=== PATIENT | male | born 1965 | race Hispanic/Latino ===

== ENCOUNTER 2023-02-22 10:36 | Emergency (ER) | payer BC, OTHER ==
[2023-02-22] MEDS ORDERED: Ondansetron PF 4 MG/2 ML Vial ONE (11:11)
[2023-02-22 11:16] LABS: #Basophils 0.1 thou/uL (0.0-0.2); #Lymphocytes 1.7 thou/uL (1.20-3.40); #Monocytes 0.8 thou/uL (0.11-0.59); #Neutrophils 12.3 thou/uL (1.40-6.50); %Basophils 0.8 % (0.0-1.0); %Eosinophils 0.2 % (0.0-10.0); %Lymphocytes 11.5 % (21.0-51.0); %Monocytes 5.2 % (0.0-10.0); %Neutrophils 82.5 % (42.0-75.0); Hemoglobin 8.2 g/dL (14.0-18.0); Mean Corpuscular HGB CONC 33.1 g/dL (32.0-36.0); Mean Corpuscular Hemoglobin 27.3 pg (27.0-31.0); Mean Corpuscular Volume 82.3 fl (78.0-98.0); Mean Platelet Volume 8.5 fL (7.4-10.4); Platelet Count 402 10x3/uL (130-400); RBC Distribution Width 15.6 % (11.5-14.5); Red Blood Cell (RBC) Count 3.01 mill/uL (4.70-6.10)
[2023-02-22 11:26] LABS: INR-International Normal Ratio 1.5; Prothrombin Time 18.7 sec (12.0-14.7)
[2023-02-22 11:27] LABS: PTT 28.9 sec (22.9-36.1)
[2023-02-22 11:48] LABS: ALT (SGPT) 273 U/L (8-55); AST (SGOT) 167 U/L (5-34); Albumin 3.9 g/dL (3.5-5.0); Alkaline Phosphatase 301 U/L (40-110); Anion Gap 26 mmol/L (10-20); BUN (Urea Nitrogen) 92 mg/dL (8.4-25.7); Bilirubin, Total 11.7 mg/dL (0.2-1.2); Calc. Creatinine Clearance 0 mL/min (70-130); Calcium 8.8 mg/dL (7.8-10.44); Carbon Dioxide 26 mmol/L (22-29); Chloride 82 mmol/L (98-107); Estimated GFR 26; Globulin 3.8 g/dL (2.4-3.5); Glucose 281 mg/dL (70-105); Lipase 454 U/L (8-78); Potassium 2.7 mmol/L (3.5-5.1); Protein, Total 7.7 g/dL (6.0-8.3); Sodium 131 mmol/L (136-145)
[2023-02-22] MEDS ORDERED: Morphine 4 MG/ML VIAL ONE (13:28)
[2023-02-22] MEDS ORDERED: NS 0.9% w/ 20 MEQ KCL 0 ML ONE (13:28)
[2023-02-22] MEDS ORDERED: Potassium Chloride 20 MEQ/100 ML PREMIX BAG ONE (13:33)
[2023-02-22] MEDS ORDERED: hydrALAZINE 20 MG/ML VIAL ONE (17:16)
[2023-02-22] MEDS ORDERED: HYDROmorphone 0.5 MG/0.5 ML SYRINGE ONE (18:03)
[2023-02-22 19:17] LABS: HBSAg Index 0.21 S/CO (0-0.99); Hep B Surf Ag Non-Reactive S/CO (NonReactive)
[2023-02-22 19:18] LABS: HBCM Index 0.09 S/CO (0-0.79); Hep A IgM AB Non-Reactive (NonReactive); Hep A IgM S/CO 0.46 S/CO (0-0.79); Hepatitis B Core IgM Abs Non-Reactive (NonReactive)
[2023-02-23] MEDS ORDERED: HYDROmorphone 0.5 MG/0.5 ML SYRINGE ONE (00:49)
[2023-02-23] MEDS ORDERED: Ondansetron PF 4 MG/2 ML Vial ONE ×2 (05:10→12:50)
[2023-02-23 06:14] LABS: #Basophils 0.1 thou/uL (0.0-0.2); #Eosinphils 0.1 thou/uL (0.0-0.7); #Lymphocytes 1.4 thou/uL (1.20-3.40); #Neutrophils 9.8 thou/uL (1.40-6.50); %Eosinophils 0.8 % (0.0-10.0); %Lymphocytes 11.4 % (21.0-51.0); %Monocytes 7.7 % (0.0-10.0); %Neutrophils 79.1 % (42.0-75.0); Hemoglobin 6.9 g/dL (14.0-18.0); Mean Corpuscular HGB CONC 31.4 g/dL (32.0-36.0); Mean Corpuscular Hemoglobin 26.4 pg (27.0-31.0); Mean Corpuscular Volume 83.9 fl (78.0-98.0); Mean Platelet Volume 8.1 fL (7.4-10.4); Platelet Count 350 10x3/uL (130-400); RBC Distribution Width 15.8 % (11.5-14.5); Red Blood Cell (RBC) Count 2.61 mill/uL (4.70-6.10); White Blood Cell (WBC) Count 12.3 10x3/uL (4.8-10.8)
[2023-02-23 06:32] LABS: ALT (SGPT) 193 U/L (8-55); AST (SGOT) 115 U/L (5-34); Albumin 3.2 g/dL (3.5-5.0); Alkaline Phosphatase 248 U/L (40-110); Anion Gap 17 mmol/L (10-20); BUN (Urea Nitrogen) 79 mg/dL (8.4-25.7); Bilirubin, Total 9.4 mg/dL (0.2-1.2); Calc. Creatinine Clearance 0 mL/min (70-130); Carbon Dioxide 30 mmol/L (22-29); Chloride 92 mmol/L (98-107); Estimated GFR 50; Globulin 3.4 g/dL (2.4-3.5); Glucose 194 mg/dL (70-105); Protein, Total 6.6 g/dL (6.0-8.3); Sodium 136 mmol/L (136-145)
[2023-02-23 06:42] LABS: Potassium 2.6 mmol/L (3.5-5.1)
[2023-02-23] MEDS ORDERED: Potassium Chloride 20 MEQ TAB ONE (06:51)
[2023-02-23] MEDS ORDERED: Pantoprazole 40 MG VIAL ONE (08:58)
[2023-02-23] MEDS ORDERED: Sodium Chloride 0.9% 0 ML ONE (08:58)
[2023-02-23 10:10] LABS: #Basophils 0.2 thou/uL (0.0-0.2); #Eosinphils 0.1 thou/uL (0.0-0.7); #Lymphocytes 1.3 thou/uL (1.20-3.40); #Monocytes 0.8 thou/uL (0.11-0.59); #Neutrophils 9.6 thou/uL (1.40-6.50); %Basophils 1.5 % (0.0-1.0); %Eosinophils 1.1 % (0.0-10.0); %Lymphocytes 10.9 % (21.0-51.0); %Monocytes 6.5 % (0.0-10.0); Hemoglobin 6.8 g/dL (14.0-18.0); Mean Corpuscular HGB CONC 31.1 g/dL (32.0-36.0); Mean Corpuscular Hemoglobin 26.3 pg (27.0-31.0); Mean Corpuscular Volume 84.3 fl (78.0-98.0); Mean Platelet Volume 8.2 fL (7.4-10.4); Platelet Count 374 10x3/uL (130-400); RBC Distribution Width 15.2 % (11.5-14.5); Red Blood Cell (RBC) Count 2.58 mill/uL (4.70-6.10)
[2023-02-23 10:26] LABS: ALT (SGPT) 190 U/L (8-55); AST (SGOT) 122 U/L (5-34); Albumin 3.2 g/dL (3.5-5.0); Alkaline Phosphatase 255 U/L (40-110); Anion Gap 15 mmol/L (10-20); BUN (Urea Nitrogen) 73 mg/dL (8.4-25.7); Bilirubin, Total 9.6 mg/dL (0.2-1.2); Calc. Creatinine Clearance 0 mL/min (70-130); Calcium 8.2 mg/dL (7.8-10.44); Carbon Dioxide 31 mmol/L (22-29); Chloride 94 mmol/L (98-107); Estimated GFR 53; Globulin 3.5 g/dL (2.4-3.5); Glucose 191 mg/dL (70-105); Potassium 2.7 mmol/L (3.5-5.1); Protein, Total 6.7 g/dL (6.0-8.3); Sodium 137 mmol/L (136-145)
[2023-02-23] MEDS ORDERED: Vancomycin 1 GM VIAL ONE (10:53)
[2023-02-23] MEDS ORDERED: Piperacillin/Tazobactam 3.375 GM VIAL ONE (10:53)
[2023-02-23] MEDS ORDERED: Sodium Chloride 0.9% 100 ML ONE (10:54)
[2023-02-23 11:59] LABS: Hep C IgG Ab Non-Reactive (NonReactive)
[2023-02-23 12:03] LABS: Hep C Index 0.21 S/CO (0-0.79)
== END 2023-02-22 13:30 | disposition short-term general hospital (02) ==
LOC: BURERS 10:36
DX: N17.9 Acute kidney failure, unspecified (principal); R74.01 Elevation of levels of liver transaminase levels; E87.6 Hypokalemia; R17 Unspecified jaundice; K86.89 Other specified diseases of pancreas; F17.210 Nicotine dependence, cigarettes, uncomplicated
CPT/HCPCS: 36415; 74176; 80053; 80074; 82274; 83605; 83690; 83735; 85025; 85610; 85730; 86850; 86900; 86901; 87040; 96361; 96365; 96366; 96367; 96375; 96376; C9113; J0360; J1170; J2270; J2405; J2543; J3370; J3480; J3490